=== PATIENT | male | born 1965 | race Caucasian/White ===

== ENCOUNTER 2018-08-05 12:47 | Inpatient (IN) | payer BC ==
--- OUTSIDE RECORDS SUMMARY | 2018-08-05 12:49 | XMS REPORT ---
:1965 Author Organization eClinicalWorks Care Team Providers Name Role Phone Radha Ronquillo Provider Role Unavailable Allergies, Adverse Reactions, Alerts Substance Reaction Event Type N.K.D.A. Info Not Available Non Drug Allergy Problems Problem Type Condition Code Onset Dates Condition Status Assessment Cellulitis of perineum L03.315 Active Medications Medication Code Code Instructions Start End Date Status Dosage System Date Keflex [facility] 65100401449 500 MG Orally August 03August 17, Active 1 capsule every 12 hrs 2018 2018 NovoLog [place] 79185016083 100 UNIT/ML Active as directed Subcutaneous Lantus ND 81689406511 100 UNIT/ML Active as directed Subcutaneous Results Name Result Date Reference Range Unit Abnormality Flag URINALYSIS AUTO W/O SCOPE (98945) ----NIT neg [id number] ----URO 0.2 [id number] ----PROTEIN neg [id number] ----pH 6.0 [id number] ----BLO neg [id number] ----GLUCOSE 3+ [id number] ----PETER neg [id number] ----BILIRUBIN neg [id number] ----KETONES 1+ [id number] ----SPECIFIC GRAVITY 1.020 [id number] PVR ----PVR 0 [id number] Summary Purpose eClinicalWorks Submission
--- NOTE | 2018-08-05 14:13 | ER ---
Nurse's Notes [facility] Name: Jeronimo Keane Age: 52 yrs Sex: Male : 1965 Arrival Date: 08/05/2018 Time: 12:51 Bed 14 Private MD: Diagnosis: Perineal Abscess. IDDM, hyperlipidema Presentation: 08/05 13:08 Presenting complaint: Patient states: about 3 weeks ago i had a small spot in my groin tw2 on my left side under my left butt cheek, i am on antibiotics and the last week and a half it has been swollen and Dr. Trevino didn't want to andres it because i am a diabetic. Transition of care: patient was not received from another setting of care. Onset of symptoms was August 05, 2018. Risk Assessment: Do you want to hurt yourself or someone else? Patient reports no desire to harm self or others. Initial Sepsis Screen: Does the patient meet any 2 criteria? No. Patient's initial sepsis screen is negative. Does the patient have a suspected source of infection? No. Patient's initial sepsis screen is negative. Care prior to arrival: None. 13:08 Method Of Arrival: Ambulatory tw2 13:08 Acuity: DUONG 3 tw2 Triage Assessment: 13:10 General: Appears uncomfortable, Behavior is calm, cooperative, appropriate for age. tw2 Pain: Complains of pain in left gluteal fold. Historical: - Allergies: 13:12 PENICILLINS; tw2 - Home Meds: 13:12 Novolog 100 unit/mL Sub-Q soln [Active]; Lantus 100 unit/mL Sub-Q soln [Active]; tw2 13:49 Sulema Oral [Active]; Viagra 100 mg Oral tab [Active]; Levemir subcutaneous pc1 subcutaneous [Active]; Tricor 145 mg Oral tab [Active]; Trintellix 10 mg oral tab [Active]; 13:49 Nexium 40 mg Oral cpDR [Active]; pc1 - PMHx: 13:12 Hyperlipidemia; Diabetes - IDDM; tw2 - Immunization history:: Adult Immunizations up to date. - Social history:: Smoking status: Patient uses tobacco products, smokes one pack cigarettes per day. - Ebola Screening: : Patient denies travel to an Ebola-affected area in the 21 days before illness onset. Screenin:32 Abuse screen: Denies threats or abuse. Denies injuries from another. Nutritional hj screening: No deficits noted. Tuberculosis screening: No symptoms or risk factors identified. Fall Risk None identified. Assessment: 13:38 General: Appears in no apparent distress. uncomfortable, Behavior is calm, cooperative, hj appropriate for age. Pain: Complains of pain in buttocks and left gluteal fold. Pain: Pain currently is 10 out of 10 on a pain scale. Neuro: Level of Consciousness is awake, alert, obeys commands, Oriented to person, place, time, situation, Appropriate for age. Cardiovascular: Capillary refill < 3 seconds Patient's skin is warm and dry. Respiratory: Airway is patent Respiratory effort is even, unlabored, Respiratory pattern is regular, symmetrical. GI: No signs and/or symptoms were reported involving the gastrointestinal system. : No signs and/or symptoms were reported regarding the genitourinary system. EENT: No signs and/or symptoms were reported regarding the EENT system. Derm: No signs and/or symptoms reported regarding the dermatologic system. Musculoskeletal: No signs and/or symptoms reported regarding the musculoskeletal system. 14:38 Reassessment: hospitalist in room;. hj 15:34 Reassessment: Patient and/or family updated on plan of care and expected duration. Pain hj level reassessed. Patient is alert, oriented x 3, equal unlabored respirations, skin warm/dry/pink. awaiting room placement;. 16:12 Reassessment: Patient and/or family updated on plan of care and expected duration. Pain hj level reassessed. Patient is alert, oriented x 3, equal unlabored respirations, skin warm/dry/pink. BGL- 399 covered with reg insulin;. 16:53 Reassessment: to room 219;. hj Vital Signs: 13:10 BP 130 / 84; Pulse 109; Resp 18; Temp 98.1(O); Pulse Ox 99% on R/A; Weight 101.6 kg; tw2 Height 6 ft. 2 in. (187.96 cm) (R); Pain 10/10; 13:39 BP 138 / 75; Pulse 98; Resp 18; Pulse Ox 98% on R/A; Pain 10/10; hj 15:35 BP 117 / 75; Pulse 90; Resp 18; Pulse Ox 98% on R/A; hj 16:12 BP 122 / 85; Pulse 90; Resp 18; Pulse Ox 100% on R/A; hj 17:21 BP 124 / 87; Pulse 92; Resp 18; Pulse Ox 100% on R/A; hj 13:10 Body Mass Index 28.76 (101.60 kg, 187.96 cm) tw2 ED Course: 12:51 Patient arrived in ED. mr 13:10 Triage completed. tw2 13:10 Arm band placed on. tw2 13:14 Williams Cleary MD is Attending Physician. kdr 13:24 Andrea Mejia RN is Primary Nurse. hj 13:32 Patient has correct armband on for positive identification. Bed in low position. Call light in reach. Side rails up X 1. Adult w/ patient. 14:11 Tony Knapp DO is Hospitalizing Provider. kdr 14:27 Inserted saline lock: 20 gauge in right forearm, using aseptic technique. pc1 14:27 Initial lab(s) drawn, by al, sent to lab. hj 15:06 CT completed. Patient tolerated procedure well. Patient moved back from CT. nj 15:07 CT Pelvis w cont In Process Unspecified. EDMS 17:59 No provider procedures requiring assistance completed. Patient admitted, IV remains in hj place. intact. Administered Medications: 14:29 Drug: Clindamycin 900 mg Route: IVPB; Infused Over: 30 mins; Site: right antecubital; pc1 14:40 Follow up: IV Status: Infusion continued upon admission hj 15:14 Drug: vancoMYCIN 1.5 grams Route: IVPB; Rate: calculated rate; Site: right forearm; hj 15:15 Follow up: IV Status: Infusion continued upon admission hj 16:03 Drug: Insulin Regular Human 8 units {Co-Signature: ls4 (Nat Kent RN).} Route: IVP; Site: right forearm; 16:14 Follow up: Response: No adverse reaction; Blood sugar is lowered Point of Care Testing: Blood Glucose: 16:58 Blood Glucose: 211 mg/dL; pc1 Ranges: Outcome: 14:12 Decision to Hospitalize by Provider. kdr 17:59 Patient left the ED. tw2 17:59 Admitted to Med/surg accompanied by nurse, via wheelchair, room 220, with chart, Report hj called to ANISHA Covarrubias 17:59 Condition: stable 17:59 Instructed on the need for admit, Demonstrated understanding of instructions. Signatures: Dispatcher [employer] EDMS Williams Cleary MD MD kdr Rivera, Kathy mr Andrea Mejia RN ANISHA hj Keisha Singh RN RN tw2 Kenroy Shane Patrick pc1 Lisa Stewart RN ls4 Corrections: (The following items were deleted from the chart) 16:54 16:12 BP 162 / 100; Pulse 90bpm; Resp 18bpm; Pulse Ox 100% RA; katarina bray
--- NOTE | 2018-08-05 14:13 | EDPHYS ---
Physician Documentation [facility] Name: Jeronimo Keane Age: 52 yrs Sex: Male : 1965 Arrival Date: 08/05/2018 Time: 12:51 Bed 14 Private MD: ED Physician Williams Cleary HPI: 08/05 14:13 This 52 yrs old Male presents to ER via Ambulatory with complaints of Abscess.kdr 14:13 The patient presents with an abscess of the perineum, The patient presents with kdr cellulitis of the , the patient presents with a swollen area of the . Description: erythematous, fluctuant, hot, raised, swollen, tense, warm. 14:14 Onset: The symptoms/episode began/occurred gradually, 1.5 week(s) ago. Possible kdr cause(s): unknown. Associated signs and symptoms: The patient has no apparent associated signs or symptoms. Modifying factors: the symptoms are alleviated by remaining still, repositioning , the symptoms are aggravated by walking, pressure, sitting, squeezing the lesion and expressing the contents, touching. Severity of symptoms: At their worst the symptoms were moderate, in the emergency department the symptoms are unchanged. The patient has not experienced similar symptoms in the past. The patient has been recently seen by a physician: the patient's primary care provider, has been on Keflex for two days. Historical: - Allergies: 13:12 PENICILLINS; tw2 - Home Meds: 13:12 Novolog 100 unit/mL Sub-Q soln [Active]; Lantus 100 unit/mL Sub-Q soln [Active]; tw2 13:49 Sulema Oral [Active]; Viagra 100 mg Oral tab [Active]; Levemir subcutaneous pc1 subcutaneous [Active]; Tricor 145 mg Oral tab [Active]; Trintellix 10 mg oral tab [Active]; 13:49 Nexium 40 mg Oral cpDR [Active]; pc1 - PMHx: 13:12 Hyperlipidemia; Diabetes - IDDM; tw2 - Immunization history:: Adult Immunizations up to date. - Social history:: Smoking status: Patient uses tobacco products, smokes one pack cigarettes per day. - Ebola Screening: : Patient denies travel to an Ebola-affected area in the 21 days before illness onset. ROS: 14:14 Constitutional: Negative for fever, chills, and weight loss, Eyes: Negative for injury, kdr pain, redness, and discharge, ENT: Negative for injury, pain, and discharge, Neck: Negative for injury, pain, and swelling, Cardiovascular: Negative for chest pain, palpitations, and edema, Respiratory: Negative for shortness of breath, cough, wheezing, and pleuritic chest pain, Abdomen/GI: Negative for abdominal pain, nausea, vomiting, diarrhea, and constipation, Back: Negative for injury and pain, : Negative for injury, bleeding, discharge, and swelling, MS/Extremity: Negative for injury and deformity, Neuro: Negative for headache, weakness, numbness, tingling, and seizure activity. Psych: Negative for depression, anxiety, suicide ideation, homicidal ideation, and hallucinations, Allergy/Immunology: Negative for hives, rash, and allergies, Endocrine: Negative for neck swelling, polydipsia, polyuria, polyphagia, and marked weight changes, Hematologic/Lymphatic: Negative for swollen nodes, abnormal bleeding, and unusual bruising. 14:14 Skin: Positive for abscess, cellulitis, erythema, swelling, of the perineum. Exam: 14:14 Constitutional: This is a well developed, well nourished patient who is awake, alert, kdr and in no acute distress. Head/Face: Normocephalic, atraumatic. Eyes: Pupils equal round and reactive to light, extra-ocular motions intact. Lids and lashes normal. Conjunctiva and sclera are non-icteric and not injected. Cornea within normal limits. Periorbital areas with no swelling, redness, or edema. Neck: Trachea midline, no thyromegaly or masses palpated, and no cervical lymphadenopathy. Supple, full range of motion without nuchal rigidity, or vertebral point tenderness. No Meningismus. Chest/axilla: Normal chest wall appearance and motion. Nontender with no deformity. No lesions are appreciated. Cardiovascular: Regular rate and rhythm with a normal S1 and S2. No gallops, murmurs, or rubs. Normal PMI, no JVD. No pulse deficits. Respiratory: Lungs have equal breath sounds bilaterally, clear to auscultation and percussion. No rales, rhonchi or wheezes noted. No increased work of breathing, no retractions or nasal flaring. Abdomen/GI: Soft, non-tender, with normal bowel sounds. No distension or tympany. No guarding or rebound. No evidence of tenderness throughout. Back: No spinal tenderness. No costovertebral tenderness. Full range of motion. MS/ Extremity: Pulses equal, no cyanosis. Neurovascular intact. Full, normal range of motion. Neuro: Awake and alert, GCS 15, oriented to person, place, time, and situation. Cranial nerves II-XII grossly intact. Motor strength 5/5 in all extremities. Sensory grossly intact. Cerebellar exam normal. Normal gait. Psych: Awake, alert, with orientation to person, place and time. Behavior, mood, and affect are within normal limits. 14:14 Skin: abscess, that is moderate sized, of the perineum, with fluctuance, that is moderate, with induration, with surrounding cellulitis, that is mild. Vital Signs: 13:10 BP 130 / 84; Pulse 109; Resp 18; Temp 98.1(O); Pulse Ox 99% on R/A; Weight 101.6 kg; tw2 Height 6 ft. 2 in. (187.96 cm) (R); Pain 10/10; 13:39 BP 138 / 75; Pulse 98; Resp 18; Pulse Ox 98% on R/A; Pain 10/10; hj 15:35 BP 117 / 75; Pulse 90; Resp 18; Pulse Ox 98% on R/A; hj 16:12 BP 122 / 85; Pulse 90; Resp 18; Pulse Ox 100% on R/A; hj 17:21 BP 124 / 87; Pulse 92; Resp 18; Pulse Ox 100% on R/A; hj 13:10 Body Mass Index 28.76 (101.60 kg, 187.96 cm) tw2 MDM: 14:12 Patient medically screened. kdr 14:14 Data reviewed: vital signs, lab test result(s), radiologic studies. Counseling: I had a kdr detailed discussion with the patient and/or guardian regarding: the historical points, exam findings, and any diagnostic results supporting the discharge/admit diagnosis, lab results, radiology results, the need for further work-up and treatment in the hospital. 08/05 14:17 Order name: CBC w/o diff; Complete Time: 15:27 hj 08/05 14:17 Order name: BMP; Complete Time: 15:27 hj 08/05 14:19 Order name: CT Pelvis w cont; Complete Time: 15:35 kdr 08/05 15:27 Order name: Procalcitonin [facility] 08/05 14:17 Order name: IV Saline Lock; Complete Time: 14:29 Administered Medications: 14:29 Drug: Clindamycin 900 mg Route: IVPB; Infused Over: 30 mins; Site: right antecubital; pc1 14:40 Follow up: IV Status: Infusion continued upon admission hj 15:14 Drug: vancoMYCIN 1.5 grams Route: IVPB; Rate: calculated rate; Site: right forearm; hj 15:15 Follow up: IV Status: Infusion continued upon admission hj 16:03 Drug: Insulin Regular Human 8 units {Co-Signature: ls4 (Nat Kent RN).} Route: IVP; Site: right forearm; 16:14 Follow up: Response: No adverse reaction; Blood sugar is lowered Point of Care Testing: Blood Glucose: 16:58 Blood Glucose: 211 mg/dL; pc1 Ranges: Critical Glucose Levels:Adult <50 mg/dl or >400 mg/dl <40 mg/dl or >180 mg/dl Disposition: 08/05/18 14:12 Hospitalization ordered by Tony Knapp for Inpatient Admission. Preliminary diagnosis is Perineal Abscess. IDDM, hyperlipidema. - Bed requested for Telemetry/MedSurg (Inpatient). - Status is Inpatient Admission. tw2 - Condition is Fair. - Problem is new. - Symptoms have improved. UTI on Admission? No Signatures: Dispatcher [employer] EDMS Williams Cleary MD MD [facility] Bebo Neves em1 Andrea Mejia RN RN Keisha Singh RN RN tw2 Williams Shipman pc1 Nat Kent RN ls4 Corrections: (The following items were deleted from the chart) 16:45 14:12 Hospitalization Ordered by Tony Knapp DO for Inpatient Admission. Preliminary em1 diagnosis is Perineal Abscess. IDDM, hyperlipidema. Bed requested for Telemetry/MedSurg (Inpatient). Status is Inpatient Admission. Condition is Fair. Problem is new. Symptoms have improved. UTI on Admission? No. [facility] 17:59 16:45 08/05/2018 14:12 Hospitalization Ordered by Tony Knapp DO for Inpatient tw2 Admission. Preliminary diagnosis is Perineal Abscess. IDDM, hyperlipidema. Bed requested for Telemetry/MedSurg (Inpatient). Status is Inpatient Admission. Condition is Fair. Problem is new. Symptoms have improved. UTI on Admission? No. em1
[2018-08-05 14:33] LABS: MPV 8.4 fL (7.6-11.3); RBC Red Blood Cell Count 4.58 M/uL (4.33-5.43)
[2018-08-05] MEDS ORDERED: CLINDAMYCIN 900MG/D5W 900 MG/50 ML IVPB IV ONE (14:35)
[2018-08-05 14:46] LABS: Potassium 4.2 mmol/L (3.5-5.1)
[2018-08-05] MEDS ORDERED: VANCOMYCIN 1.5 GM in NA CHLORIDE 0.9% 500 ML IVPB ONE (15:00)
--- NOTE | 2018-08-05 15:30 | RAD REPORT ---
EXAM DESCRIPTION: CT - Pelvis W/Cont - 08/05/2018 3:07 pm CLINICAL HISTORY: Pelvic pain. Pelvic abscess COMPARISON: None. TECHNIQUE: Computed axial tomography of the pelvis was obtained. 50 cc Isovue-300 administered intra venously. All CT scans are performed using dose optimization technique as appropriate and may include automated exposure control or mA/KV adjustment according to patient size. FINDINGS: A 3.7 x 2.5 centimeter fluid collection with an enhancing wall is present within the left gluteal fold. It abuts the left aspect of anus. An intraabdominal abscess is not seen. IMPRESSION: 3.7 x 2.5 centimeter fluid collection consistent with an abscess within the left gluteal fold
[2018-08-05] MEDS ORDERED: INSULIN -REGULAR HUMAN 50 UNIT/0.5 ML ML ONE (16:18)
--- NOTE | 2018-08-05 16:50 | P.HP ---
Certification for Inpatient Patient admitted to: Inpatient With expected LOS: >2 Midnights Patient will require the following post-hospital care: None Practitioner: I am a practitioner with admitting privileges, knowledge of patient current condition, hospital course, and medical plan of care. Services: Services provided to patient in accordance with Admission requirements found in Title 42 Section 412.3 of the Code of Federal Regulations Patient History Date of Service: 08/05/18 Primary Care Provider: Dr. Neal; Urology-Dr. Trevino Reason for admission: Left gluteal fold abscess History of Present Illness: 52-year-old male presented to the emergency room after he was sent by his urologist to evaluate an abscess to the left gluteal fold. Patient reports that last week he started to notice a knot to the left gluteal fold. Over the last 2 days his been getting worse. He was given antibiotic therapy by his urologist. He was seen today in with worsening pain, erythema. Patient was sent over by urology for further evaluation and treatment. Patient reports some fever. Pain is noted. In the ER patient evaluated. White count 13.8, hemoglobin 14. Sodium 135, potassium 4.2, BUN of 16, creatinine 0.9 with a GFR of 80. Glucose 399. CT scan revealed a 3.7 x 2.5 cm left gluteal fold abscess. The patient was admitted for further evaluation and treatment. When I saw the patient he appeared stable. Case discussed with surgery. Surgery plans for surgical intervention tomorrow. Allergies Penicillins Allergy (Verified 08/05/18 14:24) UNK Home medications list reviewed: Yes - Past Medical/Surgical History Diabetic: Yes -: Diabetes mellitus type 2, insulin dependent -: Hyperlipidemia -: GERD -: Depression -: Tobacco abuse -: Chronic allergic rhinitis -: Appendectomy -: Esophageal surgery at Psych[facility]/ Personal History: Patient is of 20 years. He has 1 child. He has a pest control agent. - Family History Family History: Reviewed- Non-Contributory - Social History Smoking Status: Heavy Tobacco smoker (>10 cigarettes/day) Counseled patient to stop smoking for: less than 10 minutes Smoking therapy provided: Yes Patient receptive to therapy: No Alcohol use: Yes CD- Drugs: No Caffeine use: Yes Place of Residence: Home Review of Systems General: Fever, As per HPI Eyes: Unremarkable ENT: Unremarkable Respiratory: Unremarkable Cardiovascular: Unremarkable Gastrointestinal: Unremarkable Genitourinary: Unremarkable Musculoskeletal: As per HPI Integumentary: As per HPI Neurological: Unremarkable Lymphatics: Unremarkable Physical Examination - Physical Exam General: Alert, In no apparent distress, Oriented x3, Cooperative HEENT: Atraumatic, Normocephalic, PERRLA, Mucous membr. moist/pink Neck: Supple, No Thyromegaly Respiratory: Clear to auscultation bilaterally, Normal air movement Cardiovascular: Normal pulses, Regular rate/rhythm Gastrointestinal: Normal bowel sounds, Soft and benign, Non-distended, No tenderness, No masses, No rebound, No guarding Musculoskeletal: No swelling, No contractures, No tenderness, No warmth Integumentary: Other (Abscess to the left gluteal fold noted. Fluctuation noted. Pain with palpation noted. Slight warmth. This measures the size of a golf ball.) Neurological: Normal speech, Normal strength at 5/5 x4 extr, Normal tone, Normal affect - Studies Laboratory Data (last 24 hrs) 08/05/18 14:24: Sodium 135 L, Potassium 4.2, BUN 16, Creatinine 0.99, Glucose 399 H 08/05/18 14:24: WBC 13.8 H, Hgb 14.3, Hct 41.0, Plt Count 247 Assessment and Plan - Plan Impression: 3.7 x 2.7 cm left gluteal fold abscess Diabetes mellitus type 2, insulin dependent Hyperlipidemia Depression GERD Tobacco abuse Plan: 3.7 x 2.7 cm left gluteal fold abscess: Patient will be admitted for further treatment. Blood cultures obtained. Case discussed with surgery. Will start IV Levaquin and Flagyl. Patient will have surgical debridement tomorrow morning. Await surgical findings. Anticipate discharge likely in the next 3-5 day Diabetes mellitus type 2, insulin dependent: Continue with basal insulin. Will provide sliding scale. Hyperlipidemia: Will need to obtain and restart home medication. Depression: Will need to obtain and restart home medication. GERD: Will provide medication Tobacco abuse: Tobacco cessation addressed. May need nicotine patch while in the hospital. Discharge Plan: Home Plan to discharge in: Greater than 2 days - Advance Directives Does patient have a Living Will: No Does patient have a Durable POA for Healthcare: No - Code Status/Comfort Care Code Status Assessed: Yes (Patient is full code) Time Spent Managing Pts Care (In Minutes): 55
[2018-08-05 18:21] VITALS: BMI 28.8
[2018-08-05] MEDS ORDERED: D50W 25 GM/50 ML SYRINGE IV PRN (18:29)
[2018-08-05] MEDS ORDERED: ALPRAZOLAM 0.25 MG TABLET PO PRN (18:29)
[2018-08-05] MEDS ORDERED: MORPHINE 2 MG/ML SYR IV PRN (18:29)
[2018-08-05] MEDS ORDERED: FEXOFENADINE 180 MG TAB PO PRN (18:29)
[2018-08-05] MEDS ORDERED: GLUCAGON 1 MG/VIAL IM PRN (18:29)
[2018-08-05] MEDS ORDERED: ACETAMINOPHEN 500 MG TAB PO PRN (18:29)
[2018-08-05] MEDS ORDERED: TRAMADOL HCL 50 MG TAB PO PRN (18:29)
[2018-08-05] MEDS ORDERED: ONDANSETRON 4 MG/2 ML VIAL IV PRN (18:29)
[2018-08-05] MEDS ORDERED: Levofloxacin500mg IV 500 MG/100 ML BAG IV SCH (21:00)
[2018-08-05] MEDS ORDERED: INSULIN GLARGINE 100 UNITS/ML SQ SCH (21:00)
[2018-08-05] MEDS: NA CHLORIDE 0.9% 1,000 ML IV SCH (21:21)
[2018-08-05] MEDS: HYDROCODONE/APAP 7.5/325 MG TAB PO PRN (21:27)
[2018-08-05] MEDS: FAMOTIDINE 20 MG TAB PO SCH (21:27)
[2018-08-05] MEDS: INSULIN -REGULAR HUMAN 50 UNIT/0.5 ML ML SQ SCH (21:28)
[2018-08-05] MEDS: METRONIDAZOLE 500mg IVPB 500 MG/100 ML BAG IV SCH (21:29)
--- NOTE | 2018-08-05 21:50 | CON ---
Date of Consultation: 08/05/2018 Reason For Consultation: Possible infection in the left groin. History Of Present Illness: The patient is a 52-year-old gentleman who states that in the left groin , he had a developing infection over the last 3 weeks. It was below his scrotum and in between the s crotum and rectum on the left side. He saw Dr. Trevino. I believe he started him on some oral antibi otics, but did not do an I and D because the patient is a diabetic. He came to the emergency room. He had some fever yesterday and none today and no discharge, complaining of increasing pain and fever in that area per se. No sore throat, runny nose, cough, headaches, or dizziness. No chest pain. Review of Systems: Otherwise unremarkable. Past Medical History: Significant for type 2 diabetes, hyperlipidemia and CAD. Allergies: INCLUDE PENICILLIN. Social History: He does smoke. He drinks occasionally. Past Surgical History: Significant for appendectomy and reversal of a TE fistula done as an . Family History: Noncontributory at this time. Physical Examination: Vital Signs: On admission are stable. Slightly elevated pulse rate of 109. He is afebrile. General: He is awake, alert, oriented x3. Head and Neck: Cranial nerves 2 through 12 grossly within normal limits. No neck masses. No JVD. Throat clear. Neck is supple. Chest: Clear. Heart: S1, S2. Abdomen: Soft, nondistended, nontender. Positive bowel sounds. Extremities: Neurovascularly intact. Neuro: Nonfocal. Skin: On the perineal exam, the patient had approximately a 6 x 4 cm of erythema, warmth, edema with central fluctuance. Warmth and tenderness are extending from below the left scrotum toward the anus on the left side. Laboratory Data: Show a white count of 13.8. His chemistry shows glucose of 399. He had a CT of th e pelvis, which shows a 3.7 x 2.5 cm fluid collection and enhancing well present within the left glut eal fold abutting the left aspect of anus. No intra-abdominal abscess is seen. Assessment: Left perirectal abscess. Plan: Admit, n.p.o., IV fluid, IV antibiotics, manage his diabetes, try to get his sugar under monik r control. Tomorrow, we will proceed with exam under anesthesia, rigid proctoscopy, incision and suzette inage and debridement of the perirectal abscess. The patient and family understand the risks, benefi ts, and alternatives, and agrees to procedure. ZURDO/CARMELINA Voice ID: [id number] Report ID: [id number]
[2018-08-05] MEDS: QUETIAPINE 25 MG TAB PO PRN (23:30)
[2018-08-06] MEDS: METRONIDAZOLE 500mg IVPB 500 MG/100 ML BAG IV SCH ×2 (00:43→08:48)
[2018-08-06 00:52] LABS: Urine Appearance CLEAR; Urine Bilirubin NEGATIVE (NEG); Urine Blood NEGATIVE (NEG); Urine Color YELLOW; Urine Glucose 3+ (NEG); Urine Protein NEGATIVE (NEG); Urine Specific Gravity >=1.030 (1.005-1.030)
[2018-08-06 00:57] LABS: Urine Microscopic Reflex NO UMIC
[2018-08-06] MEDS: NA CHLORIDE 0.9% 1,000 ML IV SCH (05:22)
[2018-08-06 07:00] LABS: Absolute Lymphocytes (CBC) 2.3 K/uL (0.7-4.9); Absolute Monocytes 0.8 K/uL (0.1-1.3); Absolute Neutrophil 8.3 K/uL (1.8-8.0); Basophils % 0.3 % (0-1.3); Hematocrit 41.7 % (39.6-49.0); Lymphocytes % 19.6 % (15.3-44.8); MPV 8.8 fL (7.6-11.3); Monocytes % 6.5 % (3.3-12.3); RBC Red Blood Cell Count 4.69 M/uL (4.33-5.43)
[2018-08-06 07:05] LABS: Magnesium 1.7 mg/dL (1.8-2.4); Potassium 3.8 mmol/L (3.5-5.1)
[2018-08-06] MEDS: INSULIN -REGULAR HUMAN 50 UNIT/0.5 ML ML SQ SCH ×5 (07:30→20:36)
[2018-08-06] MEDS: FAMOTIDINE 20 MG TAB PO SCH (08:44)
[2018-08-06] MEDS ORDERED: PROPOFOL 200 MG/20 ML VIAL IV ONE (08:59)
[2018-08-06] MEDS ORDERED: FENTANYL CITR 100 MCG/2 ML ONE (08:59)
[2018-08-06] MEDS ORDERED: ONDANSETRON 4 MG/2 ML VIAL ONE (09:00)
[2018-08-06] MEDS ORDERED: MIDAZOLAM HCL 2 MG/2 ML INJ ONE (09:00)
[2018-08-06] MEDS ORDERED: INSULIN -REGULAR HUMAN 50 UNIT/0.5 ML ML SQ ONE (09:00)
[2018-08-06] MEDS ORDERED: LIDOCAINE 2% MPF 5 ML VIAL ONE (09:00)
[2018-08-06] MEDS ORDERED: BUPIVACAINE 0.5% PF 10 ML VIAL ONE (09:06)
[2018-08-06] MEDS ORDERED: NA CHLORIDE 0.9% 1,000 ML ONE (09:52)
--- NOTE | 2018-08-06 09:57 | P.OP ---
Preoperative diagnosis: Stacie-Rectal Abcess Postoperative diagnosis: same Primary procedure: EUA, Rigid Procto, I and D and Debridement Stacie-Rectal Abscess Anesthesia: General Estimated blood loss: min Specimen: Pus Findings: as above Complications: None Transferred to: Recovery Room Condition: Good
[2018-08-06] MEDS ORDERED: HYDROCODONE/APAP 7.5/325 MG TAB ONE (10:34)
[2018-08-06] MEDS ORDERED: POTASSIUM CL SA 10 MEQ TAB PO ONE (11:35)
[2018-08-06] MEDS ORDERED: MAGNESIUM SULFATE 1 gm IVPB 1 GM/100 ML BAG IV ONE (11:35)
[2018-08-06] MEDS ORDERED: CHLORHEXIDINE GLUCO 4% 120 ML TOP SCH (12:00)
--- NOTE | 2018-08-06 12:26 | P.PN ---
Subjective Date of Service: 08/06/18 Primary Care Provider: Dr. Neal; Urology-Dr. Trevino Chief Complaint: Left gluteal fold abscess Subjective: Doing well (Patient NPO for surgery) Physical Examination - Vital Signs Temperature: 99.0 F Blood Pressure: 115/73 Pulse: 107 Respirations: 16 Pulse Ox (%): 98 - Physical Exam General: Alert, In no apparent distress, Oriented x3, Cooperative HEENT: Atraumatic Neck: Supple Respiratory: Clear to auscultation bilaterally, Normal air movement Cardiovascular: Normal pulses, Regular rate/rhythm Gastrointestinal: Normal bowel sounds, Soft and benign, Non-distended, No masses , No rebound, No guarding Integumentary: Other (Left gluteal fold abscess unchanged.) Neurological: Normal speech, Normal strength at 5/5 x4 extr, Normal tone, Normal affect - Studies Laboratory Data (last 24 hrs) 08/05/18 14:24: Sodium 135 L, Potassium 4.2, BUN 16, Creatinine 0.99, Glucose 399 H 08/05/18 14:24: WBC 13.8 H, Hgb 14.3, Hct 41.0, Plt Count 247 Medications List Reviewed: Yes Assessment & Plan Discharge Plan: Home Plan to discharge in: Greater than 2 days Physician Review Additional Text: Impression: 3.7 x 2.7 cm left gluteal fold abscess Diabetes mellitus type 2, insulin dependent Hyperlipidemia Depression GERD Tobacco abuse Plan: 3.7 x 2.7 cm left gluteal fold abscess: Patient NPO for surgery. Case discussed with surgery after surgical intervention. Surgery noted a great deal of pus. Will need to cover for MRSA. Will discontinue Levaquin and Flagyl. Will change to IV vancomycin. Await culture results. Will teach on wound care. Continue to monitor closely. Diabetes mellitus type 2, insulin dependent: Will adjust basal insulin. Continue sliding scale. Hyperlipidemia: Will need to obtain and restart home medication. Depression: Will restart home medication. GERD: Will provide medication Tobacco abuse: Tobacco cessation addressed. May need nicotine patch while in the hospital. Time Spent Managing Pts Care (In Minutes): 55
[2018-08-06] MEDS: INSULIN GLARGINE 100 UNITS/ML SQ SCH ×2 (12:52→20:44)
[2018-08-06] MEDS: VANCOMYCIN 1.75 GM in NA CHLORIDE 0.9% 500 ML IVPB SCH (12:53)
[2018-08-06] MEDS ORDERED: D50W 25 GM/50 ML SYRINGE IV PRN (16:53)
[2018-08-06] MEDS ORDERED: GLUCAGON 1 MG/VIAL IM PRN (16:53)
[2018-08-06] MEDS: ENOXAPARIN 40 MG/0.4 ML SQ SCH (17:47)
[2018-08-06] MEDS: NICOTINE 21 MG/PAT TD SCH (19:02)
[2018-08-06] MEDS: MUPIROCIN 2% OINT 22GM TUBE TOP SCH (20:44)
--- NOTE | 2018-08-06 23:11 | OP ---
Date of Procedure: 08/06/2018 Surgeon: Ang Lee MD Preoperative Diagnosis: Left perirectal abscess. Postoperative Diagnosis: Left perirectal abscess. Procedure: Exam under anesthesia; rigid proctoscopy; and incision, drainage, and debridement of left perirectal abscess. Estimated Blood Loss: Minimal. Specimen: Pus. Findings: As above. Anesthesia: General. Complications: None. Disposition: The patient tolerated the procedure in stable condition and taken to Recovery in good g eneral condition. Description Of Procedure: The patient was brought to the OR, placed in a supine position. General a nesthesia was begun. The patient was placed in a lithotomy position, prepped and draped in the usual sterile fashion. Exam under anesthesia revealed a large left anterior perirectal abscess extending from the anal verge towards scrotum on the left groin side. Digital rectal exam did not reveal any o ther evidence of disease. Rigid proctoscopy performed did not reveal any evidence of disease other t ron a few internal hemorrhoids, small. Then, Marcaine 0.5% was infiltrated around the abscess. 15 b lade was used to make approximately a 4 cm incision. Subcutaneous tissue divided. Pus under pressur e was evacuated. Loculation was broken up. Necrotic tissue was debrided. Wound irrigated. Bleedin g controlled with cautery and cultures done. Wet-to-dry normal saline dressing change was applied. The patient tolerated the procedure in stable condition and taken to Recovery in good general condition. /MODL Voice ID: [id number] Report ID: [id number]
[2018-08-06] MEDS: QUETIAPINE 25 MG TAB PO PRN (23:59)
[2018-08-07] MEDS: VANCOMYCIN 1.75 GM in NA CHLORIDE 0.9% 500 ML IVPB SCH ×2 (00:04→13:10)
[2018-08-07 04:44] LABS: Absolute Lymphocytes (CBC) 2.3 K/uL (0.7-4.9); Absolute Monocytes 0.6 K/uL (0.1-1.3); Absolute Neutrophil 6.6 K/uL (1.8-8.0); Basophils % 0.7 % (0-1.3); Eosinophils % 4.8 % (0-4.4); Hematocrit 39.5 % (39.6-49.0); MPV 8.3 fL (7.6-11.3); RBC Red Blood Cell Count 4.45 M/uL (4.33-5.43)
[2018-08-07 04:57] LABS: BUN Blood Urea Nitrogen 14 mg/dL (7-18); Bicarbonate 25 mmol/L (21-32); Glucose Level 252 mg/dL (74-106); Magnesium 1.9 mg/dL (1.8-2.4); Phosphorus 2.8 mg/dL (2.5-4.9); Potassium 4.1 mmol/L (3.5-5.1); Sodium Level 136 mmol/L (136-145)
[2018-08-07] MEDS: PANTOPRAZOLE 40MG TABLET PO SCH (06:34)
[2018-08-07] MEDS: MUPIROCIN 2% OINT 22GM TUBE TOP SCH ×2 (08:41→21:53)
[2018-08-07] MEDS: INSULIN GLARGINE 100 UNITS/ML SQ SCH ×2 (08:41→21:52)
[2018-08-07] MEDS: NICOTINE 21 MG/PAT TD SCH (08:41)
[2018-08-07] MEDS: HOME MED 1 EA UNK (Vortioxetine Hydrobromide [Trintellix] 1 TAB) PO SCH (08:58)
[2018-08-07] MEDS: HYDROCODONE/APAP 7.5/325 MG TAB PO PRN ×2 (09:07→21:57)
[2018-08-07] MEDS: INSULIN -REGULAR HUMAN 50 UNIT/0.5 ML ML SQ SCH ×4 (09:12→21:50)
--- NOTE | 2018-08-07 11:16 | P.PN ---
Subjective Date of Service: 08/07/18 Primary Care Provider: Dr. Neal; Urology-Dr. Trevino Chief Complaint: Left gluteal fold abscess Subjective: Improving, Doing well Physical Examination - Vital Signs Temperature: 97.5 F Blood Pressure: 109/71 Pulse: 77 Respirations: 18 Pulse Ox (%): 97 - Physical Exam General: Alert, In no apparent distress, Oriented x3, Cooperative HEENT: Atraumatic Neck: Supple Respiratory: Clear to auscultation bilaterally, Normal air movement Cardiovascular: Normal pulses, Regular rate/rhythm Gastrointestinal: Normal bowel sounds, Soft and benign, Non-distended Musculoskeletal: No erythema, No tenderness, No warmth Integumentary: Other (Status post I and D. No pain noted) Neurological: Normal speech, Normal strength at 5/5 x4 extr, Normal tone, Normal affect - Studies Medications List Reviewed: Yes Assessment & Plan Discharge Plan: Home Plan to discharge in: 24 Hours Physician Review Additional Text: Impression: 3.7 x 2.7 cm left gluteal fold abscess status post I and D Diabetes mellitus type 2, insulin dependent Hyperlipidemia Depression GERD Tobacco abuse Plan: 3.7 x 2.7 cm left gluteal fold abscess status post I and D: Patient doing well postop. Continue current wound care. Continue IV antibiotic therapy- vancomycin. If doing well the tomorrow, patient likely can be transitioned to Bactrim and Doxycycline at discharge. Anticipate discharge as early as tomorrow. Diabetes mellitus type 2, insulin dependent: Continue to adjust basal insulin for better diabetic control. Continue sliding scale. Hyperlipidemia: Restart home medication. Depression: Continue home medication GERD: Will provide medication Tobacco abuse: Tobacco cessation addressed. May need nicotine patch while in the hospital. Time Spent Managing Pts Care (In Minutes): 55
--- NOTE | 2018-08-07 15:12 | PN ---
Date of Progress Note: 08/07/2018 Subjective: The patient is awake, alert. No complaint. Vital signs stable. Afebrile. Gram stain and cultures pending. Dressing clean dry and intact. White count is normal. Assessment: Status post exam under anesthesia, rigid proctoscopy, incision and drainage and debridem ent of a perirectal abscess. Recommendations: Continue antibiotics as ordered. Wound care as ordered. Will teach family how to change the dressings. Once the cultures become apparent as to what is causing the infection, we will send the patient home on appropriate oral antibiotics. Follow up in my office in 1-2 weeks after deja sutton. Plan of care was discussed in detail with Dr. Knapp. ZURDO/CARMELINA Voice ID: [id number] Report ID: [id number]
[2018-08-07] MEDS: ENOXAPARIN 40 MG/0.4 ML SQ SCH (17:07)
[2018-08-07] MEDS: QUETIAPINE 25 MG TAB PO PRN (21:57)
[2018-08-07 23:29] VITALS: O2SAT 95
[2018-08-08] MEDS: VANCOMYCIN 1.75 GM in NA CHLORIDE 0.9% 500 ML IVPB SCH ×2 (00:50→13:19)
[2018-08-08] MEDS: PANTOPRAZOLE 40MG TABLET PO SCH (06:48)
[2018-08-08] MEDS: HYDROCODONE/APAP 7.5/325 MG TAB PO PRN (07:00)
[2018-08-08 07:05] LABS: Absolute Lymphocytes (CBC) 1.7 K/uL (0.7-4.9); Absolute Monocytes 0.5 K/uL (0.1-1.3); Absolute Neutrophil 4.4 K/uL (1.8-8.0); Basophils % 0.4 % (0-1.3); Eosinophils % 6.5 % (0-4.4); Hematocrit 39.8 % (39.6-49.0); Lymphocytes % 23.6 % (15.3-44.8); MPV 8.3 fL (7.6-11.3); Monocytes % 7.6 % (3.3-12.3); RBC Red Blood Cell Count 4.54 M/uL (4.33-5.43)
[2018-08-08 07:18] LABS: BUN Blood Urea Nitrogen 17 mg/dL (7-18); Bicarbonate 27 mmol/L (21-32); Glucose Level 245 mg/dL (74-106); Magnesium 1.7 mg/dL (1.8-2.4); Potassium 3.6 mmol/L (3.5-5.1); Sodium Level 138 mmol/L (136-145)
[2018-08-08] MEDS: HOME MED 1 EA UNK (Vortioxetine Hydrobromide [Trintellix] 1 TAB) PO SCH (09:00)
[2018-08-08] MEDS ORDERED: MAGNESIUM SULFATE 1 gm IVPB 1 GM/100 ML BAG IV ONE (09:00)
[2018-08-08] MEDS ORDERED: INSULIN GLARGINE 100 UNITS/ML SQ SCH (09:00)
[2018-08-08] MEDS ORDERED: POTASSIUM CL SA 10 MEQ TAB PO ONE (09:00)
[2018-08-08] MEDS: INSULIN -REGULAR HUMAN 50 UNIT/0.5 ML ML SQ SCH ×2 (09:20→12:39)
[2018-08-08] MEDS: MUPIROCIN 2% OINT 22GM TUBE TOP SCH (09:21)
[2018-08-08] MEDS: NICOTINE 21 MG/PAT TD SCH (09:21)
[2018-08-08 09:32] VITALS: TEMP 97.5
--- NOTE | 2018-08-08 09:54 | P.PN ---
Subjective Date of Service: 08/08/18 Primary Care Provider: Dr. Neal; Urology-Dr. Trevino Chief Complaint: Left gluteal fold abscess Subjective: Improving (No pain noted.) Physical Examination - Vital Signs Temperature: 97.5 F Blood Pressure: 114/69 Pulse: 85 Respirations: 20 Pulse Ox (%): 96 - Physical Exam General: Alert, In no apparent distress, Oriented x3, Cooperative HEENT: Atraumatic Neck: Supple Respiratory: Clear to auscultation bilaterally, Normal air movement Cardiovascular: Normal pulses, Regular rate/rhythm Gastrointestinal: Normal bowel sounds, Soft and benign, Non-distended, No tenderness, No masses, No rebound, No guarding Musculoskeletal: No erythema, No tenderness, No warmth Integumentary: No tenderness/swelling, No erythema, No warmth, No cyanosis Neurological: Normal speech, Normal strength at 5/5 x4 extr, Normal tone, Normal affect - Studies Medications List Reviewed: Yes Assessment & Plan Discharge Plan: Home Plan to discharge in: 24 Hours Physician Review Additional Text: Impression: 3.7 x 2.7 cm left gluteal fold abscess status post I and D Diabetes mellitus type 2, insulin dependent Hyperlipidemia Depression GERD Tobacco abuse Plan: 3.7 x 2.7 cm left gluteal fold abscess status post I and D: Patient doing well postop. Continue current wound care. Patient currently on IV antibiotic therapy-vancomycin. Awaiting wound culture results. Gram negative rehan and Gram positive cocci noted on 1 of the wound cultures. Will discuss with surgery. Possible discharge today if okay with surgery. Patient will likely transition to oral medication-Bactrim and Doxycycline. Family has been taught on wound care. Will discuss plan of care with surgery. Diabetes mellitus type 2, insulin dependent: Continue to adjust basal insulin for better diabetic control. Continue sliding scale. Hyperlipidemia: Continue home medication. Depression: Continue home medication GERD: Continue medication Tobacco abuse: Tobacco cessation addressed. May need nicotine patch while in the hospital. Time Spent Managing Pts Care (In Minutes): 55
--- NOTE | 2018-08-08 13:04 | P.DS ---
Admission Date: 08/05/18 Discharge Date: 08/08/18 Primary Care Provider: Dr. Neal; Urology-Dr. Trevino Disposition: ROUTINE DISCHARGE Discharge Condition: GOOD Reason for Admission: Left gluteal fold abscess Consultations: Surgery-Dr. Lee Procedures: CT scan: FINDINGS: A 3.7 x 2.5 centimeter fluid collection with an enhancing wall is present within the left gluteal fold. It abuts the left aspect of anus. An intraabdominal abscess is not seen. IMPRESSION: 3.7 x 2.5 centimeter fluid collection consistent with an abscess within the left gluteal fold Surgery: Date of Procedure: 08/06/2018 Surgeon: Ang Lee MD Preoperative Diagnosis: Left perirectal abscess. Postoperative Diagnosis: Left perirectal abscess. Procedure: Exam under anesthesia; rigid proctoscopy; and incision, drainage, and debridement of left perirectal abscess. Estimated Blood Loss: Minimal. Medical Problem List: 3.7 x 2.7 cm left gluteal fold abscess status post I and D Diabetes mellitus type 2, insulin dependent Depression GERD Tobacco abuse Brief History of Present Illness: 52-year-old male presented to the emergency room after he was sent by his urologist to evaluate an abscess to the left gluteal fold. Patient reports that last week he started to notice a knot to the left gluteal fold. Over the last 2 days his been getting worse. He was given antibiotic therapy by his urologist. He was seen today in with worsening pain, erythema. Patient was sent over by urology for further evaluation and treatment. Patient reports some fever. Pain is noted. In the ER patient evaluated. White count 13.8, hemoglobin 14. Sodium 135, potassium 4.2, BUN of 16, creatinine 0.9 with a GFR of 80. Glucose 399. CT scan revealed a 3.7 x 2.5 cm left gluteal fold abscess. The patient was admitted for further evaluation and treatment. When I saw the patient he appeared stable. Case discussed with surgery. Surgery plans for surgical intervention tomorrow. Hospital Course: Patient presented with 3.7 x 2.7 cm left gluteal fold abscess. Patient seen and evaluated by surgery. Patient had irrigation and debridement. Patient did well post operatively. At discharge patient will continue with Bactrim DS 1 pill twice daily and doxycycline 100 mg twice daily for 10 days. Patient will continue current wound care as per surgery. taught on dressing changes. Patient will continue with Bactroban ointment to the nares and umbilicus twice daily. Recommend to follow up with surgery in 1 week to follow up his care. Surgery to follow up on cultures. Patient with diabetes type 2, insulin dependent. Patient will continue with his current insulin regimen of Lantus 34 units subcu twice daily and NovoLog. Recommended maintain blood sugars less 140 fasting and less than 200 after meals. Further adjustment can be done by his PCP. Patient with GERD. Patient will continue with Nexium 40 mg daily. Patient with depression. Patient will continue with his medication of Trintellix 10 mg daily and Seroquel 50 mg at bedtime. Patient with tobacco cessation. Cessation addressed in detail. Education will be provided. Vital Signs/Physical Exam: Temp Pulse Resp BP Pulse Ox 97.5 F 85 20 114/69 96 08/08/18 09:54 08/08/18 09:54 08/08/18 09:54 08/08/18 09:54 08/08/18 09:54 General: Alert, In no apparent distress, Oriented x3, Cooperative HEENT: Atraumatic Neck: Supple Respiratory: Clear to auscultation bilaterally, Normal air movement Cardiovascular: Normal pulses, Regular rate/rhythm Gastrointestinal: Normal bowel sounds, Soft and benign, Non-distended, No tenderness, No masses, No rebound, No guarding Musculoskeletal: No erythema, No tenderness, No warmth Integumentary: No erythema, No warmth, No cyanosis Neurological: Normal speech, Normal strength at 5/5 x4 extr, Normal tone, Normal affect Laboratory Data at Discharge: WBC 7.2 K/uL (4.3-10.9) D 08/08/18 06:10 Hgb 13.9 g/dL (13.6-17.9) 08/08/18 06:10 Hct 39.8 % (39.6-49.0) 08/08/18 06:10 Plt Count 270 K/uL (152-406) 08/08/18 06:10 Sodium 138 mmol/L (136-145) 08/08/18 06:10 Potassium 3.6 mmol/L (3.5-5.1) 08/08/18 06:10 BUN 17 mg/dL (7-18) 08/08/18 06:10 Creatinine 0.71 mg/dL (0.55-1.3) 08/08/18 06:10 Glucose 245 mg/dL (74-106) H 08/08/18 06:10 Phosphorus 2.8 mg/dL (2.5-4.9) 08/07/18 04:25 Magnesium 1.7 mg/dL (1.8-2.4) L 08/08/18 06:10 Home Medications: Esomeprazole Mag Trihydrate [Nexium] 40 mg PO DAILY 08/05/18 Insulin Aspart [Novolog Flexpen] 14 unit SQ PC 08/05/18 Insulin Glargine,Hum.rec.anlog [Lantus] 34 unit SQ BID 08/05/18 Quetiapine Fumarate [Seroquel] 0.5 tab PO BEDTIME 08/05/18 Vortioxetine Hydrobromide [Trintellix] 1 tab PO DAILY 08/05/18 Chlorhexidine 4% [Betasept*] 1 appl TOP UD #1 btl 08/08/18 Doxycycline Hyclate 100 mg PO BID #20 tablet 08/08/18 Mupirocin Oint [Bactroban 2% Ointment*] 1 appl TOP BID #1 tube 08/08/18 Sulfamethoxazole/Trimethoprim [Bactrim Ds Tablet] 1 each PO BID #20 tablet 08/08 Tramadol HCl [Ultram] 50 mg PO TID PRN #15 tablet 08/08/18 New Medications: Chlorhexidine 4% [Betasept*] 1 appl TOP UD #1 btl Doxycycline Hyclate 100 mg PO BID #20 tablet Mupirocin Oint [Bactroban 2% Ointment*] 1 appl TOP BID #1 tube Sulfamethoxazole/Trimethoprim [Bactrim Ds Tablet] 1 each PO BID #20 tablet Tramadol HCl [Ultram] 50 mg PO TID PRN #15 tablet PRN Reason: Pain Scale 2-4 (Mild) Patient Discharge Instructions: 1. Follow up with surgery within 1 week. 2. Patient presented with 3.7 x 2.7 cm left gluteal fold abscess. Patient seen and evaluated by surgery. Patient had irrigation and debridement. Patient did well post operatively. At discharge patient will continue with Bactrim DS 1 pill twice daily and doxycycline 100 mg twice daily for 10 days. Patient will continue current wound care as per surgery. taught on dressing changes. Patient will continue with Bactroban ointment to the nares and umbilicus twice daily. Recommend to follow up with surgery in 1 week to follow up his care. Surgery to follow up on cultures. 3. Patient with diabetes type 2, insulin dependent. Patient will continue with his current insulin regimen of Lantus 34 units subcu twice daily and NovoLog. Recommended maintain blood sugars less 140 fasting and less than 200 after meals. Further adjustment can be done by his PCP. 4. Patient with GERD. Patient will continue with Nexium 40 mg daily. 5. Patient with depression. Patient will continue with his medication of Trintellix 10 mg daily and Seroquel 50 mg at bedtime. 6. Patient with tobacco cessation. Cessation addressed in detail. Education will be provided. Diet: ADA Activity: Ad parris Time spent managing pt's care (in minutes): 55
--- NOTE | 2018-08-08 13:26 | PN ---
Date of Progress Note: 08/08/2018 Subjective: The patient is awake alert. No complaint. Vital signs are stable, afebrile. Cultures are still pending. However, he has grown out gram-negative rods and gram-positive cocci in clusters. Dressing is clean, dry, and intact. Assessment: Status post incision, drainage, and debridement. Perirectal abscess. Recommendations: The patient can be discharged home on oral antibiotics. Plan of care was discussed with Dr. Knapp yesterday. Wound care as ordered. Follow up in my office in 1-2 weeks. ZURDO/MODL Voice ID: [id number] Report ID: [id number]
[2018-08-08 13:57] VITALS: BP 128/78
== END 2018-08-08 15:59 | disposition home or self-care (01) | DRG 572 ==
LOC: ER 12:47 → ERHOLD 16:35 → 2ND 17:39
PROVIDERS: ADMIT Family Medicine; ATTEND Family Medicine
PROC: 0D9P0ZX Drainage of Rectum, Open Approach, Diagnostic (ICD-10-PCS; 2018-08-06)
PROC: 0DJD8ZZ Inspection of Lower Intestinal Tract, Via Natural or Artificial Opening Endoscopic (ICD-10-PCS; 2018-08-06)
PROC: 0JB90ZZ Excision of Buttock Subcutaneous Tissue and Fascia, Open Approach (ICD-10-PCS; principal; 2018-08-06 12:15)
DX: L02.31 Cutaneous abscess of buttock (principal); E11.9 Type 2 diabetes mellitus without complications; Z79.4 Long term (current) use of insulin; K21.9 Gastro-esophageal reflux disease without esophagitis; F32.9 Major depressive disorder, single episode, unspecified; F17.210 Nicotine dependence, cigarettes, uncomplicated; Z88.0 Allergy status to penicillin; E78.5 Hyperlipidemia, unspecified; J30.9 Allergic rhinitis, unspecified; K64.8 Other hemorrhoids
CPT/HCPCS: 36415; 72193; 80048; 80202; 81003; 82962; 83735; 84100; 84145; 85025; 85027; 87040; 87070; 87075; 87205; 99285; J1650; J2250; J2270; J2405; J2704; J3010; J3475; J7030; Q9967